=== PATIENT | female | born 1995 | race Caucasian/White ===

== ENCOUNTER 2023-06-07 09:34 | Emergency (ER) | payer MEDICAID ==
[~2023-06-07] VITALS: Ht 165.1 cm; Wt 113.6 kg
[2023-06-07 09:40] VITALS: TEMP 97.6
[2023-06-07 10:28] LABS: BASOPHILS % (AUTO) 0.7 % (0.0-2.0); EOSINOPHILS % (AUTO) 3.7 % (1.0-6.0); HEMATOCRIT 35.9 % (36-46); HEMOGLOBIN 11.8 g/dL (12.0-16.0); LYMPHOCYTES # (AUTO) 1.6 K/uL (1.0-4.8); LYMPHOCYTES % (AUTO) 17.6 % (22.0-44.0); MEAN CORPUSCULAR HEMOGLOBIN 27.1 pg (26.0-34.0); MEAN CORPUSCULAR HGB CONC 32.9 G/dL (31.0-37.0); MEAN CORPUSCULAR VOLUME 82 fL (80-100); MONOCYTES # (AUTO) 0.7 K/uL (0.1-1.0); MONOCYTES % (AUTO) 7.8 % (2.0-9.0); NEUTROPHILS # (AUTO) 6.4 K/uL (1.8-7.7); NEUTROPHILS % (AUTO) 70.2 % (40.0-70.0); PLATELET COUNT (AUTO) 281 K/uL (150-450); RED BLOOD CELL COUNT(AUTO) 4.36 MIL/uL (4.00-5.20); WHITE BLOOD COUNT (AUTO) 9.2 K/uL (4.5-11.0)
[2023-06-07 10:51] LABS: ANION GAP 8 mmol/L (8-16); CALCIUM, TOTAL 8.9 mg/dL (8.8-10.5); CARBON DIOXIDE 28 mmol/L (22-29); CHLORIDE 103 mmol/L (98-107); CREATININE 0.58 mg/dL (0.60-1.30); GLOMERULAR FILTR. RATE CALC > 60 mL/min (>60); GLUCOSE,RANDOM 97 mg/dL (70-110); POTASSIUM 3.6 mmol/L (3.5-5.1); SODIUM SERUM 139 mmol/L (136-145); UREA NITROGEN, BLOOD 9 mg/dL (7-18)
[2023-06-07 10:55] LABS: ALCOHOL, BLOOD (SERUM) < 3 mg/dL (0-10)
[2023-06-07 10:57] LABS: ALANINE AMINOTRANSFERASE 25 U/L (12-78); ALBUMIN 3.5 g/dL (3.4-5.0); ALKALINE PHOSPHATASE 90 U/L (46-116); ASPARTATE AMINOTRANSFERASE 13 U/L (15-37); BILIRUBIN,TOTAL 0.4 mg/dL (0.1-1.0); TOTAL PROTEIN, SERUM 7.2 g/dL (6.4-8.2)
[2023-06-07] MEDS: MECLIZINE HCL 25 MG TABLET PO ONE (11:47)
[2023-06-07] MEDS: ACETAMINOPHEN 500 MG TABLET PO ONE (11:48)
[2023-06-07] MEDS: SODIUM CHLORIDE 0.9% 1,000 ML IV ONE (12:56)
[2023-06-07] MEDS: KETOROLAC TROMETHAMINE 30 MG/ML VIAL IVP ONE (12:56)
[2023-06-07] MEDS: ONDANSETRON HCL 4 MG/2 ML VIAL IVP ONE (12:56)
[2023-06-07 13:19] VITALS: BP 97/56; PULSE 62; RESP 20
[2023-06-07] MEDS ORDERED: ACET-66 PO (13:48)
[2023-06-07] MEDS ORDERED: IBUP-1554 PO (13:48)
[2023-06-07] MEDS ORDERED: MECL-134 PO (13:48)
== END 2023-06-07 14:12 | disposition home or self-care (01) ==
LOC: EMS 09:34
DX: R51.9 Headache, unspecified (principal); R42 Dizziness and giddiness; F17.210 Nicotine dependence, cigarettes, uncomplicated
CPT/HCPCS: 99284; 96374; 96361; 96375; 80053; 84703; 85025; 36415; 93005; G0480; J1885; J2405; J7030

== ENCOUNTER 2024-01-24 15:02 | Emergency (ER) | payer MEDICAID, OTHER ==
[~2024-01-24] VITALS: Ht 162.6 cm; Wt 136.4 kg
[~2024-01-24 15:02] MED LIST: ACET-66 PO; IBUP-1554 PO; MECL-134 PO
[2024-01-24 15:11] VITALS: TEMP 98.6
[2024-01-24] MEDS: KETOROLAC TROMETHAMINE 30 MG/ML VIAL IVP ONE (17:36)
[2024-01-24] MEDS: ACETAMINOPHEN 325 MG TABLET PO ONE (17:37)
[2024-01-24] MEDS: SODIUM CHLORIDE 0.9% 1,000 ML IV ONE (17:37)
[2024-01-24] MEDS: DiphenhydrAMINE HCL 50 MG/ML VIAL IVP ONE (17:37)
[2024-01-24] MEDS: PROCHLORPERAZINE EDISYLATE 5 MG/ML 2 ML VIAL IVP ONE (17:37)
[2024-01-24 17:57] LABS: BASOPHILS % (AUTO) 0.7 % (0.0-2.0); EOSINOPHILS % (AUTO) 2.6 % (1.0-6.0); HEMATOCRIT 38.2 % (36-46); HEMOGLOBIN 12.5 g/dL (12.0-16.0); MEAN CORPUSCULAR HEMOGLOBIN 27.8 pg (26.0-34.0); MEAN CORPUSCULAR HGB CONC 32.8 G/dL (31.0-37.0); MEAN CORPUSCULAR VOLUME 85 fL (80-100); MONOCYTES # (AUTO) 0.7 K/uL (0.1-1.0); MONOCYTES % (AUTO) 8.3 % (2.0-9.0); NEUTROPHILS # (AUTO) 5.1 K/uL (1.8-7.7); NEUTROPHILS % (AUTO) 63.4 % (40.0-70.0); PLATELET COUNT (AUTO) 354 K/uL (150-450); RED CELL DISTRIBUTION WIDTH 14.4 % (11.5-14.5); WHITE BLOOD COUNT (AUTO) 8.1 K/uL (4.5-11.0)
[2024-01-24 18:06] LABS: ANION GAP 11 mmol/L (8-16); CALCIUM, TOTAL 8.7 mg/dL (8.8-10.5); CARBON DIOXIDE 24 mmol/L (22-29); CHLORIDE 104 mmol/L (98-107); CREATININE 0.67 mg/dL (0.60-1.30); GLOMERULAR FILTR. RATE CALC > 60 mL/min (>60); GLUCOSE,RANDOM 87 mg/dL (70-110); POTASSIUM 3.7 mmol/L (3.5-5.1); SODIUM SERUM 139 mmol/L (136-145); UREA NITROGEN, BLOOD 9 mg/dL (7-18)
[2024-01-24 18:16] LABS: TROPONIN I-HIGH SENSITIVITY Less Than 4 ng/L (<51)
[2024-01-24 18:43] VITALS: BP 124/68; PULSE 65; RESP 18; O2SAT 100
== END 2024-01-24 20:46 | disposition home or self-care (01) ==
LOC: EMS 15:02
DX: R07.89 Other chest pain (principal); R51.9 Headache, unspecified; J45.909 Unspecified asthma, uncomplicated
CPT/HCPCS: 99285; 96374; 96375; 71045; 96361; 80048; 84484; 84703; 85025; 36415; 93005; J1200; J1885; J0780; J7030

== ENCOUNTER 2025-01-02 16:02 | Emergency (ER) | payer MEDICAID, OTHER ==
[~2025-01-02] VITALS: Ht 162.6 cm; Wt 166.4 kg
[2025-01-02 16:04] VITALS: TEMP 98.4
[2025-01-02] MEDS ORDERED: ALBU18HF12 IH (16:06)
[2025-01-02] MEDS: ALBUTEROL SULFATE 2.5 MG/0.5 ML NEB SOLUTION NEB ONE (17:00)
[2025-01-02] MEDS: IPRATROPIUM BROMIDE 0.5 MG/2.5 ML NEB SOLUTION NEB ONE (17:00)
[2025-01-02 17:03] VITALS: PULSE 85; RESP 18; O2SAT 99
[2025-01-02] MEDS: GuaiFENesin/D-METHORPHAN [SUGAR-FREE] 200-20MG/10 ML SYRUP UDCUP PO ONE (17:10)
[2025-01-02] MEDS: ACETAMINOPHEN 500 MG TABLET PO ONE (17:11)
[2025-01-02 17:18] VITALS: PULSE 91; RESP 20; O2SAT 100
[2025-01-02 17:30] VITALS: BP 129/74; PULSE 88; RESP 20; O2SAT 98
[2025-01-02] MEDS ORDERED: AMOX500T2 PO (17:41)
[2025-01-02] MEDS ORDERED: GUAIFDM PO (17:41)
[2025-01-02] MEDS ORDERED: ACET-66 PO (17:41)
[2025-01-02] MEDS ORDERED: PRED-554 PO (17:41)
[2025-01-02] MEDS ORDERED: IPRA3AMP24 NEB (17:41)
== END 2025-01-02 19:04 | disposition home or self-care (01) ==
LOC: EMS 16:12
DX: J98.4 Other disorders of lung (principal); J45.901 Unspecified asthma with (acute) exacerbation; Z79.899 Other long term (current) drug therapy
CPT/HCPCS: 99284; 71045; 94640; J7512; J7613

== ENCOUNTER 2025-04-19 11:25 | Emergency (ER) | payer SELFPAY ==
[~2025-04-19] VITALS: Ht 162.6 cm; Wt 166.0 kg
[~2025-04-19 11:25] MED LIST changes: +ALBU18HF12 IH; +AMOX500T2 PO; +GUAIFDM PO; -IBUP-1554 PO; +IPRA3AMP24 NEB; -MECL-134 PO; +PRED-554 PO
[2025-04-19 11:29] VITALS: TEMP 97.7
[2025-04-19 11:59] LABS: APPEARANCE,URINE TURBID (CLEAR); GLUCOSE, URINE (UA) NEGATIVE (NEGATIVE); LEUKOCYTE ESTERASE ,URINE MODERATE (NEGATIVE); NITRATE,URINE NEGATIVE (NEGATIVE); OCCULT BLOOD,URINE LARGE (NEGATIVE); SPECIFIC GRAVITIY, URINE 1.027 (1.003-1.030)
[2025-04-19 12:10] LABS: SQUAMOUS EPITHELIAL CELL,UR Rare /LPF (None Seen)
[2025-04-19 12:12] LABS: HCG,QUAL URINE NEGATIVE (NEGATIVE)
[2025-04-19 12:15] LABS: PLATELET COUNT (AUTO) 354 K/uL (150-450); RED BLOOD CELL COUNT(AUTO) 4.63 MIL/uL (4.00-5.20); RED CELL DISTRIBUTION WIDTH 14.3 % (11.5-14.5); WHITE BLOOD COUNT (AUTO) 10.7 K/uL (4.5-11.0)
[2025-04-19 12:24] LABS: CALCIUM, TOTAL 9.1 mg/dL (8.8-10.5); CREATININE 0.57 mg/dL (0.60-1.30); GLOMERULAR FILTR. RATE CALC > 60 mL/min (>60); GLUCOSE,RANDOM 100 mg/dL (70-110); SODIUM SERUM 136 mmol/L (136-145); UREA NITROGEN, BLOOD 10 mg/dL (7-18)
[2025-04-19 12:29] LABS: ASPARTATE AMINOTRANSFERASE 16.0 U/L (15-37); TOTAL PROTEIN, SERUM 7.7 g/dL (6.4-8.2)
[2025-04-19] MEDS ORDERED: IOHEXOL 350 MG/ML 100 ML VIAL ONE (13:54)
[2025-04-19] MEDS ORDERED: 0.9% SODIUM CHLORIDE 10 ML SYRINGE IVP ONE (13:54)
[2025-04-19] MEDS: SODIUM CHLORIDE 0.9% 1,000 ML IV ONE (14:03)
[2025-04-19] MEDS: MORPHINE SULFATE 4 MG/ML SYRINGE IVP ONE ×2 (14:11→16:02)
[2025-04-19] MEDS: ONDANSETRON HCL 4 MG/2 ML VIAL IVP ONE (14:11)
[2025-04-19] MEDS: IOHEXOL 9 MG/ML 500 ML BOTTLE PO ONE (14:11)
[2025-04-19 17:04] VITALS: BP 120/68; PULSE 78; RESP 14; O2SAT 99
[2025-04-19] MEDS ORDERED: ACET-2080 PO (17:05)
[2025-04-19] MEDS ORDERED: ONDA-104 PO (17:05)
[2025-04-19] MEDS ORDERED: IBUP-1554 PO (17:05)
[2025-04-19] MEDS: ACETAMINOPHEN/CODEINE 300-30 MG TABLET PO ONE (17:12)
[2025-04-19] MEDS: IBUPROFEN 600 MG TABLET PO ONE (17:12)
== END 2025-04-19 17:34 | disposition home or self-care (01) ==
LOC: EMS 11:25
DX: R10.31 Right lower quadrant pain (principal); R42 Dizziness and giddiness; J45.909 Unspecified asthma, uncomplicated; Z79.899 Other long term (current) drug therapy
CPT/HCPCS: 99285; 74177; 96374; 96361; 96375; 80048; 80076; 81001; 83690; 84703; 85025; 36415; 96376; Q9967 ×2; J2270; J2405; J7030